=== PATIENT | female | born 1965 | race Caucasian/White ===

== ENCOUNTER → 2019-08-17 | Outpatient (CLI) | payer OTHER ==
[2019-08-17 08:46] LABS: CHOLESTEROL 197.81 mg/dL (0-200); TRIGLYCERIDES 76 mg/dL (<150)
[2019-08-17 08:57] LABS: DIRECT LDL 117 mg/dL (<100)
== END ==
LOC: OD 07:22
PROVIDERS: ATTEND Physician Assistant
DX: E78.00 Pure hypercholesterolemia, unspecified (principal)
CPT/HCPCS: 36415; 80061